=== PATIENT | female | born 2000 | race Caucasian/White ===

== ENCOUNTER 2019-06-28 14:56 | Emergency (ER) | payer SELFPAY | END 2019-06-28 17:16 | disposition home or self-care (01) | PROVIDERS: Emergency Provider Family Medicine; Family Provider Nurse Practitioner Family; Visit Provider Family Medicine | DX: M89.9 Disorder of bone, unspecified (principal); F17.210 Nicotine dependence, cigarettes, uncomplicated | CPT/HCPCS: 70486; 99283 ==

== ENCOUNTER → 2022-05-15 14:19 | Outpatient (BNVA) | payer MEDICAID, SELFPAY | PROVIDERS: PCP Nurse Practitioner Family; Visit Provider Nurse Practitioner Women's Health | DX: O09.899 Supervision of other high risk pregnancies, unspecified trimester (principal); Z3A.00 Weeks of gestation of pregnancy not specified | CPT/HCPCS: 80307; 81025; 85027; 86592; 86762; 86803; 86850; 86900; 87086; 87340; 87491; 87591; 87661; 87806; 88175 ==

== ENCOUNTER → 2022-05-28 09:05 | Outpatient (BNVA) | payer MEDICAID, SELFPAY | PROVIDERS: PCP Nurse Practitioner Family; Visit Provider Obstetrics & Gynecology | DX: Z36.87 Encounter for antenatal screening for uncertain dates (principal) | CPT/HCPCS: 76815 ==

== ENCOUNTER → 2022-07-23 10:44 | Outpatient (BNVA) | payer MEDICAID, SELFPAY | PROVIDERS: PCP Nurse Practitioner Family; Visit Provider Obstetrics & Gynecology | DX: Z36.87 Encounter for antenatal screening for uncertain dates (principal) | CPT/HCPCS: 76805 ==

== ENCOUNTER → 2022-08-20 11:43 | Outpatient (BNVA) | payer MEDICAID, SELFPAY | PROVIDERS: PCP Nurse Practitioner Family; Visit Provider Obstetrics & Gynecology | DX: O09.899 Supervision of other high risk pregnancies, unspecified trimester (principal); Z3A.00 Weeks of gestation of pregnancy not specified | CPT/HCPCS: 82950; 84315 ==

== ENCOUNTER → 2022-09-16 15:12 | Outpatient (BNVA) | payer MEDICAID, SELFPAY | PROVIDERS: PCP Nurse Practitioner Family; Visit Provider Obstetrics & Gynecology | DX: O09.899 Supervision of other high risk pregnancies, unspecified trimester (principal); Z3A.00 Weeks of gestation of pregnancy not specified | CPT/HCPCS: 84315; 85025 ==

== ENCOUNTER → 2022-11-13 08:43 | Outpatient (BNVA) | payer MEDICAID, SELFPAY | PROVIDERS: PCP Nurse Practitioner Family; Visit Provider Obstetrics & Gynecology | DX: O09.899 Supervision of other high risk pregnancies, unspecified trimester (principal) | CPT/HCPCS: 84315; 87081 ==

== ENCOUNTER 2022-11-28 05:25 | Inpatient (IN) | payer MEDICAID, SELFPAY ==
--- NOTE | 2022-11-27 11:59 | ANES.PREANE2 ---
Pre-Anesthetic Assessment Height/Weight: Height 1.6 m Operation Date: 11/28/22 07:00 Proposed Procedures p Repeat section 60387, bilateral tubal 10873], O34.219, Z30.2(Not Applicable) - Daryn Crenshaw MD Familial anesthetic complications: none Social Tobacco and No alcohol Exam alert, oriented x 3, clear to auscultation bilaterally and regular rate & rhythm Airway Mallampati: Class I Dentition: chipped History/ROS No significant complaints Anesthetic Plan ASA status: 2 Anesthesia: Regional (specify below) (spinal) Risk of > 500 ml blood loss (7ml/kg in children): Yes, adequate IV access and fluids planned Medications/Allergies Home Medications Medication Instructions Recorded Confirmed Last Taken Type prenat.vits,aida,igm-eyfq-oyfkb 1 tab PO DAILY 05/15/22 11/26/22 Unknown History Allergies Allergy/AdvReac Type Severity Reaction Status Date / Time No Known Allergies Allergy Verified 11/26/22 14:19 [facility] Anesthesia Medical History Anxiety and depression 05/15/2022-has never been on medication. Feels symptoms are managed without medication at this time No pertinent past medical history neghx: htn, dm, thyroid, dvt/pe PCP: none Surgical History History of section 1)- 08/29/2020. Failure to progress. Maternal fatigue. 2)-08/27/2021- Repeat C/S Family History Grandmother Diabetes Paternal Heart disease Paternal Mother Cervical cancer Denies family history of Colon cancer Ovarian cancer Hyperlipidemia Breast cancer Family history of thyroid problem Hypertension Uterine cancer Stroke Data Anesthesia Cardiac Studies: No Data to Display
[2022-11-28] VITALS (27 sets, daily range): BP systolic 83–109; BP diastolic 48–80; PULSE 49–97; RESP 15–17; TEMP 36.2–37.1; O2SAT 98–99; BMI 31.8
[2022-11-28 06:28] LABS: Basophils % 0.4 %; Eosinophils # 0.1 10^3/uL (0.0-0.8); Eosinophils % 1.1 %; Hematocrit 38.3 % (37.0-47.0); Hemoglobin 12.4 g/dL (11.5-15.3); Lymphocytes # 2.9 10^3/uL (0.8-4.8); Lymphocytes % 26.3 %; Mean Corpuscular HGB Conc 32.4 g/dL (30.0-36.0); Mean Corpuscular Hemoglobin 27.1 pg (28.0-34.0); Mean Corpuscular Volume 83.6 fl (81-99); Mean Platelet Volume 12.4 fL (7.4-10.4); Monocytes # 0.6 10^3/uL (0.2-0.9); Monocytes % 5.8 %; Neutrophils # 7.26 10^3/uL (1.8-7.7); Neutrophils % 65.9 %; Nucleated Red Blood Cells % 0 %; Platelet Count 150 10^3/cmm (130-400); Red Blood Count 4.58 10^6/uL (4.1-5.3); Red Cell Distribution Width 13.7 % (12.1-15.1)
[2022-11-28] MEDS: famotidine 20 mg/2 mL INJ IVP (06:50)
[2022-11-28] MEDS: citric acid-sodium citrate 30 mL UDC PO (06:50)
--- NOTE | 2022-11-28 06:50 | PM.OPHPUD ---
Labor & Delivery H&P Update Date of Procedure: November 28, 2022 Date H&P Performed: 11/26/22 H&P update information: I have reviewed H&P completed within last 30 days, I have examined patient prior to procedure and No changes to prior documentation Admission Diagnosis: Preop diagnosis: Previous C/S Planned procedure: Operation Date: 11/28/22 07:00 Proposed Procedures p Repeat section 46924, bilateral tubal 59475], O34.219, Z30.2(Not Applicable) - Daryn Crenshaw MD
[2022-11-28] MEDS: metoclopramide 5 mg/mL SDV 2 mL 10 MG IVP (06:52)
[2022-11-28] MEDS: ceFAZolin 2,000 MG in sodium chloride 0.9% (plus) 50 ML 100 MG IV (06:57)
[2022-11-28] MEDS: lactated ringers 1,000 ML 999 ML IV (06:58)
--- NOTE | 2022-11-28 08:03 | P.ANESUD_ITS ---
Pre-Anesthetic Update Pre-Anesthetic Assessment: Date of Surgery/Procedure: 11/28/22 Preop Brittaney gnosis: Previous C/S Proposed Procedure: Operation Date: 11/28/22 07:00 Proposed Procedures p Repeat section 51248, bilateral tubal 03161], O34.219, Z30.2(Not Applicable) - Daryn Crenshaw MD Any changes to Pre-Anesthetic Assessment?: No Last Intake: 22:00 Labs Last 48hrs: Short CBC 11/28/22 Range/Units 05:47 WBC 11.0 H (4.0-10.0) 10^3/ uL Hgb 12.4 (11.5-15.3) g/dL Hct 38.3 (37.0-47.0) % MCV 83.6 (81-99) fl Plt Count 150 (130-400) 10^3/c mm Neut % (Auto) 65.9 % Neut # (Auto) 7.26 (1.8-7.7) 10^3/u L Vitals: Pulse Rate 78 11/28/22 06:55 Respiratory Effort Spontaneous, Non- Labored 11/28/22 05:20 Respiratory Depth Normal 11/28/22 05:20 Respiratory Patter n Normal 11/28/22 05:20 Blood Pressure 96/57 11/28/22 06:55 Oxygen Delivery Me thod Room Air 11/28/22 05:20 Exam: Pre-Anes Outpt Exam: alert, oriented x 3, clear to auscultation bilaterally and regular rate & rhythm Cardiac Studies: No Data to Display
--- NOTE | 2022-11-28 08:28 | PM.OP ---
Operative Report Date of procedure: November 28, 2022 Pre-op diagnosis: Preop Diagnosis term , previous C/S, desire permanent sterilization Post-op diagnosis: Same as above Procedure done: Repeat low transverse delivery. Bilateral partial salpingectomy Specimens removed/disposition: Left and right fallopian tubes Surgeon: Daryn Crenshaw MD Estimated blood loss (mL): 500 IV fluids (mL): 1,200 Urine output (mL): 150 Complications: None Brief History: Ms. Abdalla is a 22 year old patient with LMP of 02/24/2022(unsure), ENRIQUETA 12/01/2022, placing her at 39-4/7 weeks today. With previous delivery. Desires permanent sterilization. Admitted for repeat low-transverse delivery and bilateral partial salpingectomy. Procedure: After assuring informed consent, the patient was taken to the operating room and anesthesia was initiated. She was placed in the dorsal supine position with a left lateral tilt. The abdomen was prepped and draped in the usual sterile manner. A time-out procedure was performed. Preop antibiotics was administered. A Pfannenstiel skin incision was made with the scalpel and carried through to the underlying layer of fascia with the Bovie. The fascia was nicked in the midline and the incision extended laterally with the Ramos scissors. The superior aspect of the fascial incision was then grasped with Li clamps and elevated and the underlying rectus muscle dissected off bluntly and sharp with ramos scissors dense adhesions. Attention was then turned to the inferior aspect of the incision which, in similar fashion, was grasped and tented up with Li clamps and the rectus muscle dissected bluntly. The rectus muscles were then in the midline and the peritoneum identified, tented up and entered sharply with Metzenbaum scissors. The peritoneal incision was then extended superiorly and inferiorly with good visualization of the bladder. The Arya O retractor was then inserted and the vesicouterine peritoneum identified, grasped with pickups and entered sharply with Metzenbaum scissors. This incision was then extended laterally and the bladder flap created digitally. The uterus incised in a low transverse fashion with the scalpel. The uterine incision was then extended with the bandage scissors. The infant was then delivered in the cephalic presentation atraumatically. The nose and the mouth were suctioned with bulb and the cord clamped and cut. The cord was normal and had three vessels. Amniotic fluid was clear. Apgars 8/9. weight 3350 g The placenta was then removed manually and the uterus exteriorized and cleared of all clots and debris. The uterine incision was repaired with 0 Vicryl in a running-locked fashion. A second layer of the same suture was used to obtain excellent hemostasis. The gutters were cleared of all clots. The left fallopian tube was identified and grasped with a [place] clamp. The tube was then followed out to the fimbria. An avascular midsection of the fallopian tube was grasped with a [place] clamp and brought into a knuckle. The tube was clamped, sealed and transected with the [employer] fine fusion device. The specimen was sent to pathology. Excellent hemostasis was noted. The same procedure was performed on the opposite fallopian tube. The uterus was then returned to the abdomen. The rectus muscles were approximated with 3-0 chromic gut. Exparel liposomal bupivacaine was infiltrated throughout the wound, per protocol then the fascia was reapproximated with 0 Vicryl in an interrupted lock running fashion. The skin was closed with Insorb?s subcuticular absorbable gregory. The patient tolerated the procedure well. The sponge, lap and needle counts were correct times three. This documentation was created by [employer] slice cutting machine operator helper software (known for inherent slice cutting machine operator helper error). Every effort was made to assure accuracy of slice cutting machine operator helper. Any obvious errors or omissions should be clarified with the author of the document.
[2022-11-28 09:24] LABS: Amphetamines Screen Urine Negative (Negative); Barbiturates Screen Urine Negative (Negative); Benzodiazepines Screen Urine Negative (Negative); Cocaine Screen Urine Negative (Negative); Opiate Screen Urine Negative (Negative); PCP Screen Urine Negative (Negative); THC Screen Urine Negative (Negative)
[2022-11-28] MEDS: dextrose 5%-lactated ringers 1,000 ML 125 ML IV ×2 (09:30→16:08)
--- NOTE | 2022-11-28 10:42 | PC.NURSE ---
PT TO ROOM FROM OR VIA BED. ORIENTED TO ROOM AND CALL LIGHT. DISCUSSED VISITING HOURS AND PLAN OF CARE. ICE WATER PROVIDED.
--- NOTE | 2022-11-28 13:26 | ANE.PACU2 ---
Inpatient post-anesthesia follow up: Airway intact: Yes Vital signs: Temperature 97.8 F Pulse Rate 57 Respiratory Rate 16 Blood Pressure 91/58 Pulse Oximetry 98 Oxygen Delivery Me thod Room Air Oxygen Flow Rate Fraction of Inspir ed Oxygen Hydration adequate: Yes Nausea and vomiting: No Pain level: 1 Mental status: Baseline
[2022-11-28] MEDS: ketorolac 30 mg/mL INJ IVP ×2 (14:19→20:45)
[2022-11-28] MEDS: lactated ringers 1,000 ML 125 ML IV (14:19)
--- NOTE | 2022-11-28 14:43 | PC.NURSE ---
pt up to chair without difficulty. denies feeling dizzy or light headed. denies pain. pad and underwear put on, gown changed. urine output 35mL for 2 hours. IV fluid bolus started and ice water given. call light in reach, pt encouraged to sit in chair as long as desired, and to call for assistance getting back into bed
[2022-11-28] MEDS: ondansetron 2 mg/ML SDV 2 mL 4 MG IVP (14:58)
[2022-11-28 20:48] LABS: Hematocrit 31.7 % (37.0-47.0); Hemoglobin 9.9 g/dL (11.5-15.3); Mean Corpuscular HGB Conc 31.2 g/dL (30.0-36.0); Mean Corpuscular Hemoglobin 26.9 pg (28.0-34.0); Mean Corpuscular Volume 86.1 fl (81-99); Mean Platelet Volume 12.4 fL (7.4-10.4); Platelet Count 132 10^3/cmm (130-400); Red Blood Count 3.68 10^6/uL (4.1-5.3); Red Cell Distribution Width 13.7 % (12.1-15.1); White Blood Count 11.5 10^3/uL (4.0-10.0)
[2022-11-29 03:51] VITALS: BP 105/69; PULSE 78; RESP 15; TEMP 37.1; O2SAT 97
[2022-11-29] MEDS: HYDROcodone-acetaminophen 5-325 mg Tablet PO ×3 (05:20→21:00)
[2022-11-29] MEDS: prenatal vitamin Capsule 1 CAP PO (09:07)
[2022-11-29] MEDS: ibuprofen 800 mg tablet PO ×3 (09:07→20:59)
[2022-11-29] MEDS: docusate sodium 100 mg Capsule PO ×2 (09:07→16:14)
[2022-11-29 09:25] VITALS: BP 108/71; PULSE 74; TEMP 36.7; O2SAT 98
[2022-11-29] MEDS: simethicone 80 mg Chew PO (12:20)
--- NOTE | 2022-11-29 12:30 | P.PN_ITS ---
Subjective Subjective: Ms. Abdalla 22-year-old female status post repeat low-transverse delivery and bilateral partial salpingectomy postoperative day 1. Refers feeling fine. Vitals/I&O/Wt Last Vital Signs Temp 98.0 F 11/30/22 04:23 Pulse 55 L 11/30/22 04:23 Resp 15 11/30/22 04:23 BP 92/60 11/30/22 04:23 Pulse Ox 100 11/30/22 04:23 O2 Del Method Room Air 11/30/22 04:23 Physical Exam Narrative: GA; alert and oriented x 3 HEENT: normal Breasts: engorged Nipples - skin intact Lungs; clear to auscultation Heart: regular rhythm, no murmurs. Abd: Appropriately tender. BS+. Uterine fundus below umbilicus. No Fundal Ten derness. minimal tenderness, incision clean and dry, no redness, pain or Perineum: normal lochia. Extremities: no edema, no cyanosis, no tenderness. Urinary Catheter Management: Kingsley Latex: Cath Placed During This Visit: yes, but has since been removed by the nurse Reason for Continuing Indwelling Catheter: Decision to DC Catheter Urinary Catheter Date of Insertion: 11/28/22 Urinary Catheter Time of Insertion: 07:30 Date Urinary Catheter Removed: 11/28/22 Time Urinary Catheter Discontinued: 20:35 Data 11/28/22 20:33 A&P Assessment and plan (1) Status post delivery: Ms. Abdalla 22-year-old female status post repeat low-transverse delivery and bilateral partial salpingectomy postoperative day 1. She is afebrile and hemodynamically stable. Tolerating diet well. Ambulating without difficulty. Plan Continue postop observation. Attestations Medical Necessity Statement*: In my professional opinion poor admitting diagnosis. Coding Level of Care Code Acute Code for Chg Fwd Diagnoses Status post delivery Z98.891
[2022-11-29 16:05] VITALS: BP 121/80; PULSE 65; TEMP 36.5; O2SAT 99
[2022-11-29] MEDS: ferrous sulfate EC 325 mg Tablet PO (16:13)
[2022-11-29 21:21] VITALS: BP 101/66; PULSE 76; RESP 15
[2022-11-30] MEDS: HYDROcodone-acetaminophen 5-325 mg Tablet PO ×2 (03:08→09:10)
[2022-11-30 04:23] VITALS: BP 92/60; PULSE 55; RESP 15; TEMP 36.7; O2SAT 100
--- NOTE | 2022-11-30 06:49 | P.DS_ITS ---
Discharge Providers CRANBERRY SORTER Date of Admission: 11/28/22 05:25 Date of Discharge: 11/30/22 Attending Provider at Admission: Daryn Crenshaw MD Attending Provider at Discharge: Daryn Crenshaw MD Primary CRANBERRY SORTER: Daryn Crenshaw MD Primary Care Provider: Feliciano Heck Diagnoses at Discharge Discharge Diagnosis (1) Status post delivery: Status: Acute Reason for Visit Reason for Visit: epi consult Brief History: Planned repeat Hospital Course Hospital Course Ms. Abdalla is a 22 year old patient with LMP of 02/24/2022(unsure), ENRIQUETA 12/01/2022. Admitted at term for repeat low-transverse delivery and bilateral partial salpingectomy. The procedures were performed complication. Postop observation was uneventful. She is tolerating diet well. Ambulating without difficulty. Incision looks good. She is afebrile and hemodynamically stable postoperative day 2. She was counseled regarding pelvic rest for 6 weeks (no sex, no tampons, no vaginal douches). Return to the emergency room if any fever, increased bleeding or pain. Information Peripartum Data: Infant Delivery Method: Physical Exam Narrative: GA; alert and oriented x 3 HEENT: normal Breasts: engorged Nipples - skin intact Lungs; clear to auscultation Heart: regular rhythm, no murmurs. Abd: Appropriately tender. BS+. Uterine fundus below umbilicus. No Fundal T enderness. minimal tenderness, incision clean and dry, no redness, pain or Perineum: normal lochia. Extremities: no edema, no cyanosis, no tenderness. Urinary Catheter Management: Kingsley Latex: Cath Placed During This Visit: yes, but has since been removed by the nurse Reason for Continuing Indwelling Catheter: Decision to DC Catheter Urinary Catheter Date of Insertion: 11/28/22 Urinary Catheter Time of Insertion: 07:30 Date Urinary Catheter Removed: 11/28/22 Time Urinary Catheter Discontinued: 20:35 History History History 4 Term 2 0 Miscarriages/Ectopic 1 Living Children 2 Discharge Data Studies Completed and Pending Pending at discharge Category Date Time Status Pathology: Surgical [PTH] Routine Pth 11/28/22 10:08 Received Laboratory Results WBC 11.5 10^3/uL (4.0-10.0) H 11/28/22 20:33 RBC 3.68 10^6/uL (4.1-5.3) L 11/28/22 20:33 Hgb 9.9 g/dL (11.5-15.3) L 11/28/22 20:33 Hct 31.7 % (37.0-47.0) L 11/28/22 20:33 MCV 86.1 fl (81-99) 11/28/22 20:33 MCH 26.9 pg (28.0-34.0) L 11/28/22 20:33 MCHC 31.2 g/dL (30.0-36.0) 11/28/22 20:33 RDW 13.7 % (12.1-15.1) 11/28/22 20:33 Plt Count 132 10^3/cmm (130-400) 11/28/22 20:33 MPV 12.4 fL (7.4-10.4) H 11/28/22 20:33 Neut % (Auto) 65.9 % 11/28/22 05:47 Lymph % (Auto) 26.3 % 11/28/22 05:47 [place] % (Auto) 5.8 % 11/28/22 05:47 Eos % (Auto) 1.1 % 11/28/22 05:47 Baso % (Auto) 0.4 % 11/28/22 05:47 Neut # (Auto) 7.26 10^3/uL (1.8-7.7) 11/28/22 05:47 Lymph # (Auto) 2.9 10^3/uL (0.8-4.8) 11/28/22 05:47 [place] # (Auto) 0.6 10^3/uL (0.2-0.9) 11/28/22 05:47 Eos # (Auto) 0.1 10^3/uL (0.0-0.8) 11/28/22 05:47 Baso # (Auto) 0.0 10^3/uL (0.0-0.1) 11/28/22 05:47 Nucleated RBC % (auto) 0 % 11/28/22 05:47 Nucleated RBCs # 0.0 /100WBC 11/28/22 05:47 Urine Opiates Screen Negative ng/mL (Negative) 11/28/22 07:00 Ur Barbiturates Screen Negative ng/mL (Negative) 11/28/22 07:00 Ur Phencyclidine Scrn Negative ng/mL (Negative) 11/28/22 07:00 Ur Amphetamines Screen Negative ng/mL (Negative) 11/28/22 07:00 U Benzodiazepines Scrn Negative ng/mL (Negative) 11/28/22 07:00 Urine Cocaine Screen Negative ng/mL (Negative) 11/28/22 07:00 U Marijuana (THC) Screen Negative ng/mL (Negative) 11/28/22 07:00 Vitals Last Vital Signs Temp 98.0 F 11/30/22 04:23 Pulse 55 L 11/30/22 04:23 Resp 15 11/30/22 04:23 BP 92/60 11/30/22 04:23 Pulse Ox 100 11/30/22 04:23 O2 Del Method Room Air 11/30/22 04:23 Discharge Plan Discharge Patient Disposition: Home Condition: Stable Prescriptions: New hydrocodone-acetaminophen 5-325 mg tablet 1 tab PO Q4H PRN (Reason: pain) Qty: 30 0RF ferrous sulfate [Iron (ferrous sulfate)] 325 mg (65 mg iron) tablet 325 mg PO BID Qty: 60 0RF acetaminophen 325 mg capsule 325 mg PO Q4H PRN (Reason: fever or pain) Qty: 60 0RF docusate sodium [Colace] 100 mg capsule 100 mg PO BID Qty: 60 0RF ibuprofen 800 mg tablet 800 mg PO TID PRN (Reason: pain) Qty: 60 0RF Continued prenat.vits,aida,mcl-qktb-wunry Tablet 1 tab PO DAILY Discharge Orders: Discharge Order (Routine); Ordered 11/30/22 Ordered By: Daryn Crenshaw Referrals: Daryn Crenshaw MD [Physician] - 2 weeks Discharge Diet: Regular Discharge Activity: Limit activity as instructed Patient Instructions: Caring for Your Baby (ED), Caring for Your Baby (GEN), TTN (Transient Tachypnea of Hoyt) (GEN), Your [place]'s Appearance (GEN), C- Section (GEN), Opioid Safety Activity Restrictions/Additional Instructions: 1. Please call [facility] on next working day to make your post-operative appointment in 2 weeks. 2. Please stay home until you come back to the clinic on first post- hospatilization check up. 3. Please follow instructions on your medications CAREFULLY. 4. If you have abdominal incision, do not cover it unless dressing is necessary because of drainage. OK to shower, but avoid bath. Leave steri-strips until they fall off. If they are still on one week after surgery, you may remove them. 5. If you had vaginal surgery or vaginal repair, Dr. Crenshaw may instruct you to take SITZ bath. 6. Yellow, blood tinged odorous vaginal discharge is usually normal after hysterectomy or vaginal surgeries. 7. No SEXUAL INTERCOURSE, tampons, or douches until you are completely released from the post-operative care. 8. Avoid constipation by eating right and maybe using some Metamucil or Milk of Magnesia. 9. All prescription refills are given during the working hours. Please do no wait till it runs out. Call the clinic at [phone] before your medication runs out. The clinic will get in touch with your doctor to prescribe medications if necessary. 10. Please remain within 40 mile radius from our hospital because emergencies do happen now and then during the post-operative period. 11. If you have stairs at home, take one step at a time slowly and minimize the number of trips. It helps to stay in one floor for the next few days. No lifting except what you can lift by one hand until you are released from the post-operative care. 12. Driving is discouraged until you are well healed. It may be 3-4 weeks before you feel strong enough to drive. You should be able to turn and look through the rear window without pain and you should be able to push the brake pedal very hard without pain before you drive. No fast rules, but SAFETY should be your primary concern. DO NOT drive if you are on sedating medications such as narcotics. 13. Call the clinic (during working hours) to make urgent appointment or go to the Emergency room, if any of the following occurs: i. Vaginal bleeding becomes heavy, more than a period. ii. Incision becomes red and sore, or drains pus. iii. Your TEMPERATURE is over 100.4F or you have chill. iv. IV site becomes red and swollen (a little ``knot?? is usually OK) v. Persistent nausea and vomiting vi. Persistent constipation or diarrhea vii. Rash or allergic reaction to medications. Discharge Attestations CRANBERRY SORTER Time Spent in Discharge Care*: greater than 30 min Coding Level of Care Code Acute Code for Chg Fwd Diagnoses Status post delivery Z98.891
[2022-11-30] MEDS: ferrous sulfate EC 325 mg Tablet PO (07:29)
[2022-11-30] MEDS: prenatal vitamin Capsule 1 CAP PO (07:29)
[2022-11-30] MEDS: docusate sodium 100 mg Capsule PO (07:29)
[2022-11-30] MEDS: ibuprofen 800 mg tablet PO (07:30)
[2022-11-30 11:16] VITALS: BP 94/65; PULSE 60; RESP 18
[2022-11-30 13:00] VITALS: BP 94/65; PULSE 60; RESP 18
== END 2022-11-30 13:00 | disposition home or self-care (01) | DRG 785 ==
PROVIDERS: Admitting Provider Obstetrics & Gynecology; PCP Nurse Practitioner Family; Visit Provider Obstetrics & Gynecology
PROC: 10D00Z1 Extraction of Products of Conception, Low, Open Approach (ICD-10-PCS; CPT 59514; principal; 2022-11-28 07:00)
DX: O34.211 Maternal care for low transverse scar from previous cesarean delivery (principal); Z3A.39 39 weeks gestation of pregnancy; Z37.0 Single live birth; Z30.2 Encounter for sterilization
CPT/HCPCS: 36415; 51702; 59025; 59409; 80306; 85025; 85027; 88302; 96374; 96376; C9290; J0690; J1885; J2274; J2405; J2590; J2765; J3010; J3490; J7030; J7120; J7121

== ENCOUNTER → 2023-01-10 11:10 | Outpatient (BNVA) | payer MEDICAID, SELFPAY | PROVIDERS: PCP Nurse Practitioner Family; Visit Provider Obstetrics & Gynecology | DX: N89.8 Other specified noninflammatory disorders of vagina (principal); Z39.2 Encounter for routine postpartum follow-up | CPT/HCPCS: 87491; 87591 ==